=== PATIENT | female | born 1955 | race Caucasian/White ===

== ENCOUNTER 2018-02-16 14:27 | Inpatient (IN) | payer BC ==
[~2018-02-16] VITALS: Ht 172.7 cm; Wt 86.7 kg
[2018-03-09] VITALS (10 sets, daily range): BP systolic 116–133; BP diastolic 71–90; PULSE 44–65; TEMP 98.1–98.3
[2018-03-09] MEDS ORDERED: ASPIRIN E.C. 8181 MG PO (09:58)
[2018-03-09] MEDS ORDERED: CHEWABLE-V1 TAB.CHEW PO (09:58)
[2018-03-09] MEDS ORDERED: LIPITOR 10MG10 MG PO (09:58)
[2018-03-10 00:05] VITALS: BP 120/76; PULSE 66; TEMP 98.3
[2018-03-10 04:30] VITALS: BP 111/67; PULSE 70; TEMP 98
[2018-03-10 06:01] LABS: BASO % 0.2 % (0.0-2.0); GRAN # 8.3 (1.4-6.5); GRAN % 87.7 % (42.2-75.2); HEMOGLOBIN 11.9 g/dl (12.5-16.0); LYMPH # 0.6 (1.2-3.4); LYMPH % 6.1 % (20.0-51.0); MEAN CELL VOLUME 88 fl (80.0-100.0); MEAN CORPUSCULAR HEMOGLOBIN 29 pg (27.0-31.0); MEAN CORPUSCULAR HGB CONC 33 g/dl (33.0-37.0); MEAN PLATELET VOLUME 9.4 fl (7.4-10.4); MONO # 0.5 (0.1-0.6); MONO % 5.6 % (1.7-9.3); PLATELET COUNT 193 K/mm3 (130-400); RED BLOOD COUNT 4.11 M/mm3 (4.10-5.30); REDCELL DISTRIBUTION WIDTH-CV 12.1 % (11.5-14.5)
[2018-03-10 06:08] LABS: HEMATOCRIT 36.3 % (37.0-47.0)
[2018-03-10 06:13] LABS: CALCIUM 8.9 mg/dL (8.4-10.2); CREATININE, serum 0.85 mg/dL (0.52-1.25)
[2018-03-10 09:15] VITALS: BP 93/65; PULSE 63; TEMP 98.2
[2018-03-10 12:55] VITALS: BP 102/60; PULSE 57; TEMP 97.4
[2018-03-10 16:04] VITALS: BP 102/68; PULSE 63; TEMP 97.6
[2018-03-10 19:11] VITALS: BP 119/74; PULSE 54; TEMP 98
[2018-03-11 00:39] VITALS: BP 120/69; PULSE 53; TEMP 97.4
[2018-03-11 04:20] VITALS: BP 117/69; PULSE 52; TEMP 98.1
[2018-03-11 08:19] VITALS: BP 106/68; PULSE 55; TEMP 98.2
== END 2018-03-11 12:15 | disposition home or self-care (01) | DRG 658 ==
LOC: INPTSU 03-09 08:34 → SURG 03-09 11:00
PROVIDERS: Surgery; Urology
PROC: 8E0W4CZ Robotic Assisted Procedure of Trunk Region, Percutaneous Endoscopic Approach (ICD-10-PCS; 2018-03-09)
PROC: 0TB04ZZ Excision of Right Kidney, Percutaneous Endoscopic Approach (ICD-10-PCS; principal; 2018-03-09 11:00)
PROC: 0FT44ZZ Resection of Gallbladder, Percutaneous Endoscopic Approach (ICD-10-PCS; 2018-03-09 11:00)
DX: C64.1 Malignant neoplasm of right kidney, except renal pelvis (principal); K82.8 Other specified diseases of gallbladder; E78.00 Pure hypercholesterolemia, unspecified
CPT/HCPCS: A4314; A9284; C1713; J0690; J1100; J1650; J1885; J2250; J2405; J2704; J2710; J2765; J3010; J7120